=== PATIENT | female | born 1965 | race Caucasian/White ===

== ENCOUNTER 2016-07-06 20:07 | Emergency (ER) | payer MEDICARE, MEDICAID ==
[~2016-07-06] VITALS: Ht 149.9 cm; Wt 96.8 kg
[~2016-07-06 20:07] MED LIST: ARIP5TAB20 PO; GLIP10TA10 PO; KLO5T PO; LAMO200T PO; METF500T PO; OMEP20CA11 PO; PIOG15TA21 PO; VENL150T3 PO
[2016-07-06 20:13] VITALS: BP 141/82; PULSE 99; RESP 16; O2SAT 94
[2016-07-06 20:49] LABS: APPEARANCE,URINE HAZY (CLEAR,HAZY); COLOR,URINE YELLOW (YELLOW); OCCULT BLOOD,URINE NEGATIVE (NEGATIVE); PH,URINE 5.5 (5.0-8.0); UROBILINOGEN,URINE NORMAL (NORMAL); YEAST,URINE FEW (NONE SEEN)
[2016-07-06 21:28] LABS: BASOPHILS % (AUTO) 0.3 % (0-3); EOSINOPHILS % (AUTO) 0.9 % (0-5); MONOCYTES % (AUTO) 6.4 % (4-12); Mean Corpuscular Hemoglobin 25.3 pg (27.0-35.0); Mean Corpuscular Volume 79.4 fL (81-100); NEUTROPHILS % (AUTO) 61.6 % (40-74); Platelet Count 282 bil/L (150-400)
[2016-07-06] MEDS ORDERED: Insulin Human REGular-Omnicell 100 Unit/mL SUBQ ONE (22:35)
[2016-07-06] MEDS ORDERED: 0.9% Sodium Chloride 1,000 ML IV SCH (22:35)
[2016-07-06] MEDS ORDERED: 0.9% Sodium Chloride 1,000 ML IV ONE (22:35)
[2016-07-06 23:04] VITALS: BP 114/72; PULSE 88; RESP 18; O2SAT 96
--- NOTE | 2016-07-06 23:04 | ED.REPORT ---
HPI-Psychiatric Illness Date of Service Jul 06, 2016 ED Provider: Uriah Lopez MD 51-year-old female past medical history of depression, SI with attempt in college and recent psychiatric hospital admission for same in April 2016. Patient was discharged with medication management and outpatient follow-up resources in place. Presents to the ED custody of police department secondary to SI with plan. Patient states that she has not taken any of her prescription medications over the last few days, tonight she was [place] the [place] practicing she endorses a gambling addiction) when she felt guilty about being at the casino and began to have suicidal ideations. Her plan was to go home and overdose on her prescription Lamictal and metformin. She called 911 expressed these thoughts to responding officer who subsequently transported patient to ED for psychiatric eval. Patient has no medical complaints, denies hearing voices or visual disturbances. Denies ingesting alcohol drugs prescription or street. At time of interview she still endorses SI with plan and states she would like to be a voluntary admit to speak with secondary social studies teacher. Nursing Notes Stated Complaint: VOLUNTARY MENTAL HEALTH Chief Complaint: Psychiatric Complaint Nursing Notes Reviewed: Yes Allergies: Coded Allergies: codeine (Verified Adverse Reaction, Severe, Nausea,Vomiting, 07/06/16) Scheduled Aripiprazole (Aripiprazole) 5 Mg Tablet 5 MG PO DAILYWM Glipizide (Glipizide) 10 Mg Tablet 10 MG PO DAILYWM Lamotrigine (Lamictal) 200 Mg Tablet 200 MG PO DAILYWM Metformin (Glucophage) 500 Mg Tablet 1,000 MG PO BIDAC Omeprazole (Omeprazole) 20 Mg Capsule.dr 20 MG PO MORNING Pioglitazone (Pioglitazone) 15 Mg Tablet 15 MG PO DAILYWM Venlafaxine ER (Venlafaxine ER) 150 Mg Tab.er.24 300 MG PO DAILY Scheduled PRN Clonazepam (Clonazepam) 0.5 Mg Tablet 0.5 MG PO BID PRN PRN For Anxiety General Time Seen by MD: 20:37 Chief Complaint Suicidal ideation Hx Obtained From: Patient Arrived By: Police Onset Occurred: 1 - 4 hours ago Context of Onset: Other Risk-Psychiatric Illness Suicide Risk Stratification Suicide Risk Factors - Adult: : Previous attempt: Prior psych admissionNo: Access to firearms, Alcohol use RF Statements: Risk factors reviewed Past Medical History Past Medical History Notes: PCP: Dr. 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, In recovery Other Social History: Frequent ED visitor, Lives alone, Local resident Ambulatory Status Independent Review of Systems Basic Review of Systems Eyes: Vision NL ENT: Hearing NL, No pain, No nasal congestion : No dysuria Constitutional: Denies: Chills, Fever Respiratory: Denies: Non-productive cough, Shortness of breath, Wheezing Cardiovascular: Denies: Chest pain GI: Denies: Abdominal pain, Constipation, Diarrhea, Nausea, Vomiting Skin: Denies Bruising, Denies Swelling Neurologic: Denies: Abnormal movement, Change LOC, Dizziness, Focal weakness, Headache, Lightheaded, Seizure, Vision change, Weakness Psychiatric: Reports: Anxiety, Depression, Stress, Suicidal ideation, Denies: Confusion, Delusional, Hallucinations, auditory, Hallucinations, visual, Homicidal ideation Physical Exam Initial Vital Signs Vital Signs (First) Date Time Temp Pulse Resp B/P Pulse Ox O2 Delivery O2 Flow Rate FiO2 07/06/16 20:13 36.6 99 16 141/82 94 Room Air Initial VS: Reviewed Head / Eyes: Atraumatic, Normocephalic, PERRL Neck: Supple, Non-tender Respiratory: Breath sounds normal, No respiratory distress Cardiovascular: Regular rate & rhythm Abdomen / GI: Soft, Non-tender Extremities: Neuro intact Psychiatric: Affect NL, No hallucinations, Thought content NL Abnormal Mood/Affect: Positive: Depressed Abnormal Thinking / Perception: Positive: Suicidal, with plan Interpretation & Diagnostics Lab Results Interpretation Result Diagram: 07/06/16211907/06/162119 Test 07/06/16 20:34 07/06/16 21:20 Urine Color Yellow (YELLOW) Urine Appearance Hazy (CLEAR,HAZY) Urine pH 5.5 (5.0-8.0) Urine Specific [place] 1.015 (1.003-1.035) Urine Protein Negativemg/dL (NEG,TRACE) Urine Glucose (UA) 1000mg/dL (NEGATIVE) Urine Ketones Negativemg/dL (NEGATIVE) Urine Occult Blood Negative (NEGATIVE) Urine Nitrite Negative (NEGATIVE) Urine Bilirubin Negative (NEGATIVE) Urine Urobilinogen Normalmg/dL (NORMAL) Urine Leukocyte Esterase Negative (NEGATIVE) Urine RBC 0-2/hpf (0-2) Urine WBC 0-5/hpf (0-5) Urine Epithelial Cells Occasional/hpf (NONE-MOD) Urine Crystals None seen (NONE SEEN) Urine Bacteria None/hpf (NONE-FEW) Urine Hyaline Casts None/lpf (NONE) Urine Granular Casts None seen (NONE SEEN) Urine Waxy Casts None seen (NONE SEEN) Urine Red Blood Cell Casts None seen (NONE SEEN) Urine White Blood Cell Casts None seen (NONE SEEN) Urine Mucus None seen (None Seen) Urine Trichomonas None seen (NONE SEEN) Urine Yeast Few (NONE SEEN) Urinalysis Comment None Urine Culture Reflexed Not indicated Hold Urine Received (Received) White Blood Count 10.0th/mm3 (3.8-10.1) Red Blood Count 4.51mil/mm3 (3.90-5.20) Hemoglobin 11.4g/dL (12.0-15.6) Hematocrit 35.8% (35.0-46.0) Mean Corpuscular Volume 79.4fL (81-100) Mean Corpuscular Hemoglobin 25.3pg (27.0-35.0) Mean Corpuscular Hemoglobin Concent 31.8% (32.0-37.0) Red Cell Distribution Width 14.9% (12.3-15.4) Platelet Count 282bil/L (150-400) Neutrophils (%) (Auto) 61.6% (40-74) Lymphocytes (%) (Auto) 30.4% (14-46) Monocytes (%) (Auto) 6.4% (4-12) Eosinophils (%) (Auto) 0.9% (0-5) Basophils (%) (Auto) 0.3% (0-3) Sodium Level 130mEq/L (134-144) Potassium Level 4.4mEq/L (3.5-5.2) Chloride Level 91mEq/L (97-108) Carbon Dioxide Level 27mmol/L (18-29) Blood Urea Nitrogen 18mg/dL (6-24) Creatinine 0.85mg/dL (0.57-1.00) Estimat Glomerular Filtration Rate 100mL/min (>59) Glucose Level 466mg/dL (60-99) Calcium Level 9.3mg/dL (8.5-10.1) Total Bilirubin 0.2mg/dL (0.0-1.2) Aspartate Amino Transf (AST/SGOT) 11U/L (0-50) Alanine Aminotransferase (ALT/SGPT) 12U/L (0-32) Alkaline Phosphatase 126U/L (25-150) Total Protein 7.0g/dL (6.4-8.4) Albumin 3.4g/dL (3.4-5.0) Re-Eval/Medical Decision Med Decision/Clinical Course Patient is a voluntary admit, urinary to time of arrival in ED secondary social studies teacher referral not available. Patient will remain in ED until secondary social studies teacher meet with patient in the a.m. for additional evaluation and management. She has agreed to remain calm and cooperative throughout ED stay. Blood glucose in ED was ~450 time of arrival. 1 L normal saline given, 3 units regular insulin given. Repeat Glucose ~350. CBC, CMP unremarkable. Urinalysis unremarkable (did show positive for PCP, this was an error) On reevaluation of patient she did express that she feels safe to return home, no longer has suicidal ideations. She does not have access to firearms. She was encouraged to take her medications as prescribed by her provider with follow -up with her primary care provider as well as mental health professional regarding this ED visit as soon as possible. She was also given instructions to return to the ED if she has any return of SI Counseled Regarding: Diagnosis, Need for follow-up, When/why to return to ED Discharge & Departure Shift Change Sign-Out Response to Therapy: Improved Impression: Primary Impression: Suicidal ideation )( Condition at Discharge: No danger to self, No homicidal ideation Disposition: Home Discharge Condition All VS Reviewed: Yes Condition: Stable Additional Instructions: You are being discharged back home after expressing that you no longer are having thoughts of harming yourself. If you do have any return of these thoughts of harming yourself please do not act on them instead called 911 and return to the emergency department for additional evaluation. Please do follow-up with your primary care provider as soon as possible regarding today's ER visit as well as future medication management. Please continue to take your psychiatric medications as prescribed by your primary care provider. Referrals: Tommy Harris MD (PCP) Attending Statement Seen with Dr Pham on 07/06/16. Agree with above. copies to: Tommy Harris MD, GILES A DO Jul 06, 2016 23:04 Uriah Lopez MD Jul 07, 2016 00:34
[2016-07-07 00:27] VITALS: BP 127/74; PULSE 84; RESP 18; O2SAT 96
[2016-07-07 00:43] VITALS: BP 127/74; PULSE 84; RESP 18; O2SAT 96
[2016-08-24] MEDS ORDERED: CARB1TAB14 PO (15:09)
[2016-08-24] MEDS ORDERED: PIOG45TA PO (15:09)
[2016-08-24] MEDS ORDERED: VENL75CA PO (15:09)
[2016-08-24] MEDS ORDERED: DIAZ5TAB3 PO (15:09)
[2016-08-24] MEDS ORDERED: [UNRECOGNIZED DRUG - CODE] PO (15:09)
== END 2016-07-07 00:45 | disposition home or self-care (01) ==
LOC: SED 20:07
DX: R45.851 Suicidal ideations (principal); K21.9 Gastro-esophageal reflux disease without esophagitis; F31.9 Bipolar disorder, unspecified; J44.9 Chronic obstructive pulmonary disease, unspecified; E11.65 Type 2 diabetes mellitus with hyperglycemia; F17.200 Nicotine dependence, unspecified, uncomplicated; Z79.84 Long term (current) use of oral hypoglycemic drugs; Z88.5 Allergy status to narcotic agent
CPT/HCPCS: 36415; 80053; 81000; 82075; 82948; 85025; 96360; 96361; 96372; 99284; J1815; J7030

== ENCOUNTER 2016-09-21 19:56 | Emergency (ER) | payer MEDICARE, MEDICAID ==
[~2016-09-21] VITALS: Ht 149.9 cm; Wt 96.8 kg
[~2016-09-21 19:56] MED LIST changes: +CARB1TAB14 PO; +DIAZ5TAB3 PO; -GLIP10TA10 PO; -KLO5T PO; -METF500T PO; -PIOG15TA21 PO; +PIOG45TA PO; +VENL75CA PO; +[UNRECOGNIZED DRUG - CODE] PO
[2016-09-21 20:01] VITALS: BP 142/84; PULSE 91; RESP 16; O2SAT 97
[2016-09-21 20:27] LABS: BASOPHILS % (AUTO) 0.3 % (0-3); EOSINOPHILS % (AUTO) 1.4 % (0-5); MONOCYTES % (AUTO) 6.2 % (4-12); Mean Corpuscular Hemoglobin 25.4 pg (27.0-35.0); Mean Corpuscular Volume 80.1 fL (81-100); NEUTROPHILS % (AUTO) 65.9 % (40-74); Platelet Count 249 bil/L (150-400)
--- NOTE | 2016-09-21 20:52 | DRSVH ---
PROCEDURE: X-RAY CHEST, TWO VIEWS ([id number]) INDICATIONS: Cough TECHNIQUE: 2 views of the chest were acquired. COMPARISON: [facility], CR, XR CHEST 1VW (PORTABLE), 03/18/2016, 0:19. FINDINGS: Surgical changes and devices: Cervical spine fixation hardware Lungs and pleura: No pleural effusions or pneumothorax. Lungs are clear. Mediastinum: Mediastinal contours are normal. Heart size is normal. Bones and chest wall: No suspicious bony abnormalities. Soft tissues appear unremarkable. IMPRESSION: No acute disease Dictated by: Wilberto Escobar M.D. on 09/21/2016 at 20:51 Approved by: Wilberto Escobar M.D. on 09/21/2016 at 20:51
[2016-09-21 22:39] VITALS: BP 117/74; PULSE 89; RESP 22; O2SAT 95
--- NOTE | 2016-09-21 22:43 | ED.REPORT ---
HPI-URI / Cough / Cold Date of Service Sep 21, 2016 ED Provider: Darren Bro MD The patient is a 51 year old female w/ a hx of depression and multiple ED visits who presents to the ED with a non-productive cough for the past 2 weeks. She denies fever. She is a smoker and did not get a flu shot this year. Nursing Notes Stated Complaint: PNEUMONIA Chief Complaint: Respiratory Complaints Nursing Notes Reviewed: Yes Allergies: Coded Allergies: codeine (Verified Adverse Reaction, Severe, Nausea,Vomiting, 09/21/16) Scheduled Aripiprazole (Aripiprazole) 5 Mg Tablet 5 MG PO DAILYWM Carbidopa/Levodopa 25-100 mg (Carbidopa/Levodopa 25-100 mg) 1 Each Tablet 1 TABLET PO DAILY Lamotrigine (Lamictal) 200 Mg Tablet 200 MG PO DAILYWM Metformin ER (Fortamet) 500 Mg Tab.er.24 500 MG PO DAILY Omeprazole (Omeprazole) 20 Mg Capsule.dr 20 MG PO MORNING Pioglitazone (Actos) 45 Mg Tablet 45 MG PO DAILY Venlafaxine ER (Venlafaxine ER) 150 Mg Tab.er.24 300 MG PO DAILY Venlafaxine ER (Effexor XR) 75 Mg Capsule 75 MG PO DAILY Scheduled PRN Benzonatate (Benzonatate) 200 Mg Capsule 200 MG PO TID PRN PRN For Cough Diazepam (Diazepam) 5 Mg Tablet 5 MG PO TID PRN PRN For Anxiety General Time Seen by MD: 22:42 Chief Complaint Cough, non-productive Hx Obtained From: Patient Arrived By: Walk-in Onset Occurred: More than a week ago... (2 weeks) Symptom Duration: Since onset Severity: Current: No pain currently Past Medical History Past Medical History Notes: PCP: Dr. 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 Physical Exam Physical Exam Notes: Initial Vital Signs Vital Signs (First) Date Time Temp Pulse Resp B/P Pulse Ox O2 Delivery O2 Flow Rate FiO2 09/21/16 20:01 36.0 91 16 142/84 97 Room Air Initial VS: Reviewed, Vital signs normal Head / Eyes: Atraumatic, Normocephalic Neck: Supple, Non-tender Cardiovascular: Regular rate & rhythm, Heart sounds normal, Intact distal pulses Abdomen / GI: Soft, Non-tender, No guarding, No rebound, No distention Extremities: Vascular intact, No swelling, No tenderness Skin: Warm, Dry General/Constitutional: Awake, Alert, No acute distress, Well hydrated Appearance / Presentation: Positive: Obese, morbidly ENT: Atraumatic, Airway patent, Mucous membranes moist, Pharynx NL Respiratory / Chest: Atraumatic, Breath sounds NL, No respiratory distress good air movement Interpretation & Diagnostics Lab Results Interpretation Result Diagram: 09/21/16202009/21/162020 Test 09/21/16 20:21 White Blood Count 8.7th/mm3 (3.8-10.1) Red Blood Count 4.73mil/mm3 (3.90-5.20) Hemoglobin 12.0g/dL (12.0-15.6) Hematocrit 37.9% (35.0-46.0) Mean Corpuscular Volume 80.1fL (81-100) Mean Corpuscular Hemoglobin 25.4pg (27.0-35.0) Mean Corpuscular Hemoglobin Concent 31.7% (32.0-37.0) Red Cell Distribution Width 15.2% (12.3-15.4) Platelet Count 249bil/L (150-400) Neutrophils (%) (Auto) 65.9% (40-74) Lymphocytes (%) (Auto) 26.0% (14-46) Monocytes (%) (Auto) 6.2% (4-12) Eosinophils (%) (Auto) 1.4% (0-5) Basophils (%) (Auto) 0.3% (0-3) Sodium Level 130mEq/L (134-144) Potassium Level 5.0mEq/L (3.5-5.2) Chloride Level 92mEq/L (97-108) Carbon Dioxide Level 26mmol/L (18-29) Blood Urea Nitrogen 10mg/dL (6-24) Creatinine 0.82mg/dL (0.57-1.00) Estimat Glomerular Filtration Rate 104mL/min (>59) Glucose Level 543mg/dL (60-99) Calcium Level 8.4mg/dL (8.5-10.1) Total Bilirubin 0.2mg/dL (0.0-1.2) Aspartate Amino Transf (AST/SGOT) 10U/L (0-50) Alanine Aminotransferase (ALT/SGPT) 15U/L (0-32) Alkaline Phosphatase 135U/L (25-150) Total Protein 6.7g/dL (6.4-8.4) Albumin 3.6g/dL (3.4-5.0) Hold Virgen Top Tube Received (Received) X-Ray Chest Interpretation Chest Xray Interpretation: IMPRESSION: No acute disease Dictated by: Wilberto Escobar M.D. on 09/21/2016 at 20:51 Approved by: Wilberto Escobar M.D. on 09/21/2016 at 20:51 View: Portable Interpretation / Wet Read by: Interpret - Radiologist Re-Eval/Medical Decision Med Decision/Clinical Course 51-year-old smoker who presents with worsening respiratory distress and cough over the last week plus. She has a history of COPD. Chest x-ray is negative. She has no wheezing heard. She was given a prepack of azithromycin. She will follow-up with her primary doctor as needed. Re-Evaluation/Progress : Time of Eval: 22:52 Patient Status: Mild relief Re-Evaluation/Progress Note: Pt rechecked. Informed pt of results of chest x-ray. No pneumonia indicated. She will be discharged. F/U and RTER warnings given. Pt understands and agrees with plan. Counseled Regarding: Diagnosis, Lab results, Need for follow-up, When/why to return to ED Discharge & Departure Impression: Primary Impression: Acute bronchitis Bronchitis organism: unspecified organism Qualified Code: J20.9 - Acute bronchitis, unspecified Disposition: Home Discharge Condition All VS Reviewed: Yes Condition: Stable Patient Instructions: Acute Bronchitis (ED), How to Stop Smoking (GEN) Additional Instructions: Your chest x-ray does not show any signs of pneumonia. You have bronchitis, and because it is persistent and you smoke, we will treat with antibiotics. Azithromycin 250 mg, 2 pills now and then 1 pill daily until gone, #6 dispensed. Tessalon perles (benzonatate) 200 mg 3 times a day as needed for cough, #1 given in the emergency room and number and prescription written. Follow up with your primary care physician as needed. Stop smoking. Return to the Emergency Department for any new or worsening symptoms. I hope you feel better soon! Referrals: Tommy Harris MD (PCP) Scribe Attestation Portion of this note were transcribed by Monae Goldman. I, Dr. Bro, personally performed the history, physical exam, and medical decision-making: I reviewed and confirmed the accuracy for the information in the transcribed note. Signed by: kevin Philip, 09/21/16 2300 copies to: Tommy Harris MD, Howard L MD Sep 21, 2016 22:43 Monae Goldman Sep 21, 2016 22:56
[2016-09-21] MEDS ORDERED: _Azithromycin 250 mg Tablet PO SCH (23:00)
[2016-09-21] MEDS ORDERED: BENZ200C44 PO (23:12)
[2016-09-21 23:42] VITALS: BP 121/63; PULSE 97; RESP 20; O2SAT 96
== END 2016-09-21 23:43 | disposition home or self-care (01) ==
LOC: SED 19:56
DX: J20.9 Acute bronchitis, unspecified (principal); K21.9 Gastro-esophageal reflux disease without esophagitis; E11.9 Type 2 diabetes mellitus without complications; J44.9 Chronic obstructive pulmonary disease, unspecified; F17.200 Nicotine dependence, unspecified, uncomplicated; Z88.5 Allergy status to narcotic agent; Z79.84 Long term (current) use of oral hypoglycemic drugs

== ENCOUNTER 2016-09-25 11:19 | Emergency (ER) | payer MEDICARE, MEDICAID ==
[~2016-09-25] VITALS: Ht 149.9 cm; Wt 96.8 kg
[~2016-09-25 11:19] MED LIST changes: +BENZ200C44 PO
[2016-09-25 11:23] VITALS: BP 132/82; PULSE 95; RESP 15; O2SAT 95
--- NOTE | 2016-09-25 11:27 | ED.REPORT ---
HPI-Rash / Abscess Date of Service Sep 25, 2016 ED Provider: Dr. Adriel Mcbride MD A 51 year old female with a history of bipolar disorder and poorly controlled diabetes mellitus presents to the ED complaining of an abscess to the inner inguinal area that first appeared a few days ago. Patient reports several similar previous abscess. Her most recent abscess was one month ago. Associated symptoms include pain and swelling to the area. She denies fever or chills. Patient denies recent injury. Nursing Notes Stated Complaint: BOILS ON BUTTOCKS Chief Complaint: Skin Rash/Abscess Nursing Notes Reviewed: Yes Allergies: Coded Allergies: codeine (Verified Adverse Reaction, Severe, Nausea,Vomiting, 09/25/16) Scheduled Aripiprazole (Aripiprazole) 5 Mg Tablet 5 MG PO DAILYWM Carbidopa/Levodopa 25-100 mg (Carbidopa/Levodopa 25-100 mg) 1 Each Tablet 1 TABLET PO DAILY Lamotrigine (Lamictal) 200 Mg Tablet 200 MG PO DAILYWM Metformin ER (Fortamet) 500 Mg Tab.er.24 500 MG PO DAILY Omeprazole (Omeprazole) 20 Mg Capsule.dr 20 MG PO MORNING Pioglitazone (Actos) 45 Mg Tablet 45 MG PO DAILY Sulfamethoxazole/Trimeth 800-160 mg (Bactrim DS) 1 Each Tablet 1 TABLET PO BID Venlafaxine ER (Venlafaxine ER) 150 Mg Tab.er.24 300 MG PO DAILY Venlafaxine ER (Effexor XR) 75 Mg Capsule 75 MG PO DAILY Scheduled PRN Benzonatate (Benzonatate) 200 Mg Capsule 200 MG PO TID PRN PRN For Cough Diazepam (Diazepam) 5 Mg Tablet 5 MG PO TID PRN PRN For Anxiety General Time Seen by MD: 11:27 Chief Complaint Abscess Hx Obtained From: Patient Arrived By: Walk-in Onset Occurred: 3 days ago Symptom Duration: Since onset Location: : Buttock Quality: Painful Severity: Current: Mild Severity: Maximum: Moderate Associated with: Denies Fever Pertinent Negative: Pt denies other symptoms Related History: Denies: MRSA Recent Healthcare: No recent doctor visit, Recent hospitalization Past Medical History Past Medical History Notes: PCP: Dr. 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 Physical Exam Initial Vital Signs Vital Signs (First) Date Time Temp Pulse Resp B/P Pulse Ox O2 Delivery O2 Flow Rate FiO2 09/25/16 11:23 36.2 95 15 132/82 95 Room Air Initial VS: Reviewed Head / Eyes: Atraumatic, Normocephalic, PERRL Neck: Supple, Non-tender, Full range of motion Extremities: Vascular intact, Neuro intact, No swelling, No tenderness Neurologic: Alert, Oriented, Nonfocal Psychiatric: Mood/affect normal, Behavior normal, Normal thought content General/Constitutional: Awake, Alert, No acute distress Skin: Atraumatic, Color NL Abscess Notes: ABSCESS: Indurated, fluctuant 3 cm area to inner thigh and groin area adjacent to labia majora. Folliculitis in gluteal cleft Respiratory / Chest: Atraumatic, No respiratory distress Procedures Incision & Drainage Abscess Time: 14:13 Procedure Performed by: ED physician Consent / Setup / Site Prep: Consent from patient, Time-out performed, Hand hygiene observed, Stand sterile technique, Standard surgical scrub, Sterile drapes applied Location of Abscess: Inner thigh and groin area; adjacent to labia majora. Skin Preparation Agent: Normal saline Local Anesthesia: Lidocaine w epi 1% Incised Abscess with Scalpel: #11 Pus Drained: Purulent discharge, Bloody Post-Procedure / Complications: Packing placed, Drain placed, Culture obtained, Gram stain ordered, Dressing applied, No complications, Condition improved, Tolerated procedure well, Patient stable Re-Eval/Medical Decision Med Decision/Clinical Course 51-year-old with a history of recurrent groin abscesses presents with pain, redness, and swelling in the right groin. I&D procedure performed demonstrating purulent drainage. 1/4 inch packing placed without difficulty. Patient has follow-up with PCP in 3 days. Given the folliculitis present in the surrounding groin area and surrounding cellulitis/induration in the abscess region I elected to place her on Bactrim. Patient left immediately after the procedure before she could be given a prescription for antibiotics. We called the patient and she did not want to return to turkey picker her prescription. Re-Evaluation/Progress #1: Time of Eval: 14:13 Patient Status: Condition improved Re-Evaluation/Progress Note: Patient is rechecked. I & D is performed patient tolerates prodecure well. She is given aftercare instructions and agrees with the treatment plan to discharge. Re-Evaluation/Progress #2: Time of Eval: 15:14 Patient Status: Condition improved Re-Evaluation/Progress Note: Patient left without recieveing her prescription or discharge intructions. When contacted by the nurse, she claimed that she did not want them. Counseled Regarding: Diagnosis, Need for follow-up, When/why to return to ED Discharge & Departure Impression: Primary Impression: Abscess of groin, right Additional Impressions: Folliculitis Cellulitis Site of cellulitis: trunk Site of cellulitis of trunk: perineum Qualified Code: L03.315 - Cellulitis of perineum Disposition: Home Discharge Condition All VS Reviewed: Yes Condition: Improved Patient Instructions: Abscess (ED) Additional Instructions: Thank you for trusting us with your care this afternoon. Your emergency department evaluation today is reassuring and you tolerated the procedure very well. Please keep the packing in for the next 3 days and take bactrim twice every day for the next 10 days starting tomorrow. You received your first dose today in the emergency department. Keep your appointment with your primary care physician in the next 3- 4 days for a recheck. Please return to the emergency department immediately for any new or worsening conditions including any fevers, chills, worsening pain, redness or swelling. Referrals: Tommy Harris MD (PCP) Scribe Attestation Portions of this note were transcribed by Vannessa Marroquin. I, Dr. Mcbride personally performed the history, physical exam and medical decision-making; I reviewed and confirmed the accuracy of the information in the transcribed note. Signed by: David Schreiber, 09/25/16 1535. copies to: Tommy Harris MD, Gary R DO Sep 25, 2016 11:27 VANNESSA MARROQUIN Sep 25, 2016 11:35
[2016-09-25] MEDS ORDERED: Lidocaine 1%-Epi 1:100,000 20 mL Inj ONE (12:25)
[2016-09-25] MEDS ORDERED: SULF1TAB7 PO (14:25)
[2016-09-25] MEDS ORDERED: Trimethoprim-Sulfa 160 mg-800 mg Tablet PO ONE (14:30)
== END 2016-09-25 14:43 | disposition home or self-care (01) ==
LOC: SED 11:19
DX: L02.214 Cutaneous abscess of groin (principal); L03.315 Cellulitis of perineum; L73.9 Follicular disorder, unspecified; J44.9 Chronic obstructive pulmonary disease, unspecified; F31.9 Bipolar disorder, unspecified; K21.9 Gastro-esophageal reflux disease without esophagitis; E11.9 Type 2 diabetes mellitus without complications; F17.200 Nicotine dependence, unspecified, uncomplicated; Z79.84 Long term (current) use of oral hypoglycemic drugs; Z88.5 Allergy status to narcotic agent

== ENCOUNTER 2016-10-07 21:11 | Emergency (ER) | payer MEDICARE, MEDICAID ==
[~2016-10-07] VITALS: Ht 149.9 cm; Wt 92.0 kg
[~2016-10-07 21:11] MED LIST changes: +SULF1TAB7 PO
[2016-10-07 21:16] VITALS: BP 137/81; PULSE 94; RESP 20; O2SAT 96
--- NOTE | 2016-10-07 22:42 | ED.REPORT ---
HPI-Dyspnea / Wheezing Date of Service Oct 07, 2016 ED Provider: Dr. Bro. A 51 year old female with a history of diabetes and asthma presents to the ED complaining of abscess on butt cheek onset a couple of weeks ago. She had it in drained in the ED recently. Associated symptoms include non-productive cough described as hacking onset 1 month ago and wheezing. She denies any sputum from coughs and denies any fever. She reports allergy to codeine. Nursing Notes Stated Complaint: COUGH,WEEZING Chief Complaint: General Complaint Nursing Notes Reviewed: Yes Allergies: Coded Allergies: codeine (Verified Adverse Reaction, Severe, Nausea,Vomiting, 09/25/16) Scheduled Aripiprazole (Aripiprazole) 5 Mg Tablet 5 MG PO DAILYWM Carbidopa/Levodopa 25-100 mg (Carbidopa/Levodopa 25-100 mg) 1 Each Tablet 1 TABLET PO DAILY Lamotrigine (Lamictal) 200 Mg Tablet 200 MG PO DAILYWM Metformin ER (Fortamet) 500 Mg Tab.er.24 500 MG PO DAILY Omeprazole (Omeprazole) 20 Mg Capsule.dr 20 MG PO MORNING Pioglitazone (Actos) 45 Mg Tablet 45 MG PO DAILY Sulfamethoxazole/Trimeth 800-160 mg (Bactrim DS) 1 Each Tablet 1 TABLET PO BID Venlafaxine ER (Venlafaxine ER) 150 Mg Tab.er.24 300 MG PO DAILY Venlafaxine ER (Effexor XR) 75 Mg Capsule 75 MG PO DAILY Scheduled PRN Benzonatate (Benzonatate) 200 Mg Capsule 200 MG PO TID PRN PRN For Cough Diazepam (Diazepam) 5 Mg Tablet 5 MG PO TID PRN PRN For Anxiety General Time Seen by MD: 22:42 Chief Complaint Other (butt abscess) Hx Obtained From: Patient Arrived By: Walk-in Sudden in Onset?: No Onset Occurred: More than a week ago... (couple of weeks ago) Symptom Duration: Since onset Severity: Current: Moderate Severity: Maximum: Moderate Recent Healthcare: Recent doctor visit (ED visit 09/25/2016) Similar Sx Previous: No Past Medical History Past Medical History Notes: PCP: Dr. Harris Past Medical History Bipolar, approximately 6-7 admissions PTSD anxiety h/o Diverticulitis h/o PCOS GERD poorly controlled diabetes mellitus restless leg syndrome. Allergy to Codeine. Reports: COPD, Denies: Asthma Reports: Depression Past Surgical History Cervical spine surgery Reports: Cholecystectomy Family History Noncontributory Smoking History Current Every Day Smoker (1 pack per day) Social History Denies THC use. 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 Constitutional: Denies: Fever Respiratory: Reports: Non-productive cough, Wheezing, Denies: Prod cough, clear (denies sputum) Complete sys rev & neg: except as marked. Physical Exam Initial Vital Signs Vital Signs (First) Date Time Temp Pulse Resp B/P Pulse Ox O2 Delivery O2 Flow Rate FiO2 10/07/16 21:16 35.9 94 20 137/81 96 Room Air Initial VS: Reviewed, Vital signs normal General/Constitutional: Awake, Alert Neck: No swelling Wheezing / Retractions: Positive: Wheezing expiratory Patient has frequent cough. No focal change in breath sounds. Cardiovascular: Heart rate NL, Regular rhythm, Heart sounds NL, No gallop, No murmurs, No rubs ENT: Atraumatic, Airway patent Abdomen: No guarding, No rebound Small indurated erythematous area around right buttock that is not pointing. Neurologic: Oriented X3, Speech NL Head / Eyes: Atraumatic, Normocephalic, PERRL, EOMI Upper Extremity / MS: No swelling, No edema Interpretation & Diagnostics X-Ray Chest Interpretation Chest Xray Interpretation: IMPRESSION: Normal. 10/07/2016. 2343 Interpretation / Wet Read by: Wet read ED physician Re-Eval/Medical Decision Med Decision/Clinical Course 51-year-old female who presents with concern for an abscess on her buttocks. There is a small indurated area without fluctuation and there is some surrounding erythema. She also has some bronchitis and is a smoker. Her chest x-ray is negative. She will be started on doxycycline and warm compresses for the abscess. Source of Hx: Old records Re-Evaluation/Progress : Time of Eval: 23:56 Re-Evaluation/Progress Note: Rechecked patient, explained normal Chest XRay results and plan for dischaerge. Patient understands and agrees with the plan. All questions addressed. Counseled Regarding: Diagnosis, Lab results, Need for follow-up, When/why to return to ED Discharge & Departure Impression: Primary Impression: Abscess of buttock, right Additional Impressions: Bronchitis Cigarette smoker Disposition: Home Discharge Condition All VS Reviewed: Yes Condition: Improved Patient Instructions: Abscess (ED), Acute Bronchitis (ED) Additional Instructions: Doxycycline 100 mg by mouth twice a day, prepack dispensed. Warm compresses to the infected area. Recheck if it becomes larger, drains, or becomes very soft in the middle of the hardened area. The doxycycline may also be helpful with your bronchitis. No evidence of pneumonia found. Referrals: Tommy Harris MD (PCP) Scribe Attestation Portions of this note were transcribed by Carlos Flanagan. I, Dr. Bro personally performed the history, physical exam and medical decision-making; I reviewed and confirmed the accuracy of the information in the transcribed note. Signed by: David Jc, 10/08/2016, 0234. copies to: Tommy Harris MD, Howard L MD Oct 07, 2016 22:42 Carlos Flanagan Oct 07, 2016 22:47
[2016-10-07] MEDS ORDERED: Albuterol-Ipratropium 3 mL Inhalation Solution NEB ONE (22:50)
[2016-10-07 23:04] VITALS: PULSE 90; RESP 20; O2SAT 96
[2016-10-08] MEDS ORDERED: _Doxycycline 100 mg Tablet PO SCH (08:30)
--- NOTE | 2016-10-08 12:08 | DRSVH ---
PROCEDURE: X-RAY CHEST, TWO VIEWS ([id number]) INDICATIONS: cough, wheezing TECHNIQUE: 2 views of the chest were acquired. COMPARISON: [facility], CR, XR CHEST 2VW, 09/21/2016, 20:12. FINDINGS: Surgical changes and devices: Vascular clips are present in the region of the gallbladder fossa. Plat e and screws is present from previous lower cervical spine anterior surgery. Lungs and pleura: No pleural effusions or pneumothorax. Lungs are clear. Mediastinum: Mediastinal contours are normal. Heart size is normal. Bones and chest wall: No suspicious bony abnormalities. Soft tissues appear unremarkable. IMPRESSION: Acute disease is not seen in the two-view chest. Cause of cough and wheezing is not ident ified. Dictated by: Jean Jolley M.D. on 10/08/2016 at 12:01 Approved by: Jean Jolley M.D. on 10/08/2016 at 12:06
== END 2016-10-08 00:07 | disposition home or self-care (01) ==
LOC: SED 21:11
DX: L02.31 Cutaneous abscess of buttock (principal); J40 Bronchitis, not specified as acute or chronic; F17.200 Nicotine dependence, unspecified, uncomplicated; E11.9 Type 2 diabetes mellitus without complications; J45.909 Unspecified asthma, uncomplicated; J44.9 Chronic obstructive pulmonary disease, unspecified; K21.9 Gastro-esophageal reflux disease without esophagitis; Z79.84 Long term (current) use of oral hypoglycemic drugs; Z88.5 Allergy status to narcotic agent
CPT/HCPCS: 71020; 94664; 99284; J7620

== ENCOUNTER 2017-01-01 08:38 | Emergency (ER) | payer MEDICARE, MEDICAID ==
[2017-01-01 08:52] VITALS: BP 162/88; RESP 20; O2SAT 98
--- NOTE | 2017-01-01 09:10 | ED.REPORT ---
HPI-URI / Cough / Cold Date of Service Jan 01, 2017 ED Provider: Tommy Sharma MD Pt is a 51 y/o female w/ a hx of DM, COPD, presenting to the ED c/o URI-like symptoms onset 10 days ago. She c/o sore throat, productive green cough, maxillary sinus pain, rhinorrhea. Pt denies fever, chills, SOB, CP. She has a history of sinusitis and has not been on antibiotics recently. She is also reporting a lump over her right abdomen which has been present for years and was told by Urgent Care recently that it was a hernia. She does has a history of cholecystectomy. Nursing Notes Stated Complaint: COUGH/SORE THROAT Chief Complaint: ENT & Mouth Nursing Notes Reviewed: Yes Allergies: Coded Allergies: codeine (Verified Adverse Reaction, Severe, Nausea,Vomiting, 09/25/16) Scheduled Amoxicillin/Clav K 875-125 mg (Augmentin 875-125 mg) 1 Each Tablet 1 TABLET PO BID Aripiprazole (Aripiprazole) 5 Mg Tablet 5 MG PO DAILYWM Carbidopa/Levodopa 25-100 mg (Carbidopa/Levodopa 25-100 mg) 1 Each Tablet 1 TABLET PO DAILY Lamotrigine (Lamictal) 200 Mg Tablet 200 MG PO DAILYWM Metformin ER (Fortamet) 500 Mg Tab.er.24 500 MG PO DAILY Omeprazole (Omeprazole) 20 Mg Capsule.dr 20 MG PO MORNING Pioglitazone (Actos) 45 Mg Tablet 45 MG PO DAILY Sulfamethoxazole/Trimeth 800-160 mg (Bactrim DS) 1 Each Tablet 1 TABLET PO BID Venlafaxine ER (Venlafaxine ER) 150 Mg Tab.er.24 300 MG PO DAILY Venlafaxine ER (Effexor XR) 75 Mg Capsule 75 MG PO DAILY Scheduled PRN Benzonatate (Benzonatate) 200 Mg Capsule 200 MG PO TID PRN PRN For Cough Diazepam (Diazepam) 5 Mg Tablet 5 MG PO TID PRN PRN For Anxiety Promethazine DM Syrup (Promethazine DM Syrup) 118 Ml Syrup 5 ML PO HS PRN PRN For Cough General Time Seen by MD: 09:05 Chief Complaint Sore throat Hx Obtained From: Patient Arrived By: Walk-in Onset Occurred: More than a week ago... Symptom Duration: Since onset Location: : Sinus maxillary left Quality: Painful Severity: Current: Mild Severity: Maximum: Moderate Similar Sx Previous: Yes Past Medical History Past Medical History Notes: PCP: Dr. Harris Past Medical History Bipolar, approximately 6-7 admissions PTSD anxiety h/o Diverticulitis h/o PCOS GERD poorly controlled diabetes mellitus restless leg syndrome. Allergy to Codeine. Reports: COPD Reports: Depression Past Surgical History Cervical spine surgery Reports: Cholecystectomy Family History Noncontributory Smoking History Current Every Day Smoker Social History Denies THC use. 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 Cardiovascular: Denies: Chest pain Physical Exam Initial Vital Signs Vital Signs (First) Date Time Temp Pulse Resp B/P Pulse Ox O2 Delivery O2 Flow Rate FiO2 01/01/17 08:52 36.6 69 20 162/88 98 Room Air Initial VS: Reviewed, Vital signs normal Neck: Supple, Full range of motion Cardiovascular: Regular rate & rhythm, Heart sounds normal, Intact distal pulses Abdomen / GI: Soft, Non-tender Extremities: Vascular intact, Neuro intact, No swelling Skin: Warm, Dry, No cyanosis Neurologic: Alert, Oriented, Nonfocal Psychiatric: Mood/affect normal, Behavior normal, Normal thought content General/Constitutional: Awake, Alert, No acute distress, Well appearing, Cooperative, Not toxic appearing ENT: Atraumatic, Airway patent, Mucous membranes moist Respiratory / Chest: Breath sounds NL, Breath sounds = bilat, No respiratory distress, No rales, No rhonchi, No wheezing, No retractions, No stridor Head / Eyes: Atraumatic, Normocephalic, PERRL, EOMI Tender over frontal and left maxillary sinuses Re-Eval/Medical Decision Med Decision/Clinical Course Med Decision/Clinical Course: 51-year-old female complaining of sinus pressure 10 days. She is tender over her frontal and maxillary sinuses. Her vital signs are stable. Her lungs are clear. She is afebrile. She also has a ventral hernia which is reducible and nontender. He reports this has been the same for 3 years. Treat for acute bacterial sinusitis with antibiotics. Recommend follow-up with primary doctor for her ventral hernia with return precautions if any new or worsening pain, nonreducible, blood in stools, fevers, any other new or worsening symptoms. Re-Evaluation/Progress : Time of Eval: 09:47 Re-Evaluation/Progress Note: Pt rechecked. Informed pt of plan for treatment. Pt understands and agrees with plan for treatment. F/U instructions and RTER warnings given. All questions addressed. Counseled Regarding: Diagnosis, Need for follow-up, When/why to return to ED Discharge & Departure Impression: Primary Impression: Sinusitis Sinusitis location: maxillary Chronicity: acute Recurrence: not specified as recurrent Qualified Code: J01.00 - Acute maxillary sinusitis, unspecified Additional Impression: Ventral hernia Obstruction and gangrene presence: without obstruction or gangrene Qualified Code: K43.9 - Ventral hernia without obstruction or gangrene Disposition: Home Discharge Condition All VS Reviewed: Yes Condition: Stable Patient Instructions: Sinusitis (ED), Ventral Hernia (ED) Additional Instructions: You have sinusitis and a ventral hernia. Take the antibiotics as prescribed for the sinusitis. Take Promethazine DM as needed for cough. This medication is sedating. Regarding the sinusitis, return to the emergency department for trouble breathing, severe headache, high fever, or for other concerning symptoms. Regarding the hernia, return to the emergency department for severe pain over the hernia site, blood in the stools, nausea and vomiting, or for other concerning symptoms. Follow-up with your doctor regarding these problems by the end of the week. You may get a surgery referral for the hernia. Referrals: Tommy Harris MD (PCP) David Attestation Portions of this note were transcribed by Aric Dixon. I, Dr. Sharma, personally performed the history, physical exam and medical decision-making; I reviewed and confirmed the accuracy of the information in the transcribed note. Signed by David Hammond, 01/01/17 - [id number] copies to: Tommy Harris MD, Ben M MD Jan 01, 2017 09:10 ARIC DIXON Jan 01, 2017 09:42
[2017-01-01] MEDS ORDERED: D-ME118S8 PO (09:40)
[2017-01-01] MEDS ORDERED: AMOX-366 PO (09:40)
[2017-01-01 09:57] VITALS: BP 127/86; PULSE 80; RESP 16; O2SAT 95
== END 2017-01-01 09:57 | disposition home or self-care (01) ==
LOC: SED 08:38
DX: J01.00 Acute maxillary sinusitis, unspecified (principal); K43.9 Ventral hernia without obstruction or gangrene; F43.10 Post-traumatic stress disorder, unspecified; K21.9 Gastro-esophageal reflux disease without esophagitis; E11.9 Type 2 diabetes mellitus without complications; F17.200 Nicotine dependence, unspecified, uncomplicated; Z88.5 Allergy status to narcotic agent; Z79.899 Other long term (current) drug therapy

== ENCOUNTER 2017-01-30 08:49 | Inpatient (IN) | payer MEDICARE, MEDICAID ==
[~2017-01-30] VITALS: Ht 149.9 cm; Wt 86.4 kg
[~2017-01-30 08:49] MED LIST changes: +AMOX-366 PO; +D-ME118S8 PO
[2017-01-30 08:56] VITALS: BP 163/90; PULSE 84; RESP 18; O2SAT 99
[2017-01-30] MEDS ORDERED: GLIP10TA10 PO (09:11)
[2017-01-30] MEDS ORDERED: BUSP10TA2 PO (09:11)
[2017-01-30] MEDS ORDERED: PIOG15TA21 PO (09:11)
--- NOTE | 2017-01-30 10:12 | ED.REPORT ---
HPI-General Illness Date of Service Jan 30, 2017 ED Provider: Dr. Duarte Pt is a 51 year old female with a hx of DM, bipolar and depression presenting to the ED via public transit complaining of suicidal ideation. She reports that she first went to [place] today hoping to get medication to help her sleep, but was sent here on a bus. Denies any suicidal plan currently, homicidal ideation, visual or auditory hallucinations. She states that she came in today because she couldn't sleep. Denies any recent stressors, though states that her lack of sleep is making her depression worse and may be contributing to her suicidal thoughts. She states that she has had these in the past, though worse in the past few days. No other complaints at this time. Nursing Notes Stated Complaint: SUICIDAL Chief Complaint: Psychiatric Complaint Nursing Notes Reviewed: Yes Allergies: Coded Allergies: codeine (Verified Adverse Reaction, Severe, Nausea,Vomiting, 09/25/16) Scheduled Aripiprazole (Aripiprazole) 5 Mg Tablet 5 MG PO DAILYWM Buspirone (Buspirone) 10 Mg Tablet 10 MG PO BID Glipizide (Glipizide) 10 Mg Tablet 10 MG PO DAILY Lamotrigine (Lamictal) 200 Mg Tablet 200 MG PO DAILYWM Omeprazole (Omeprazole) 20 Mg Capsule.dr 20 MG PO MORNING Pioglitazone (Pioglitazone) 15 Mg Tablet 15 MG PO DAILY Venlafaxine ER (Venlafaxine ER) 150 Mg Tab.er.24 300 MG PO DAILY General Time Seen by MD: 10:11 Chief Complaint Other (Suicidal) Hx Obtained From: Patient Arrived By: Walk-in Sudden in Onset?: No Onset Occurred: Onset unknown Symptom Duration: Since onset Recent Healthcare: No recent hospitalization, Recent doctor visit Similar Sx Previous: Yes Past Medical History Past Medical History Notes: PCP: Dr. Harris Past Medical History Bipolar, approximately 6-7 admissions PTSD anxiety h/o Diverticulitis h/o PCOS GERD poorly controlled diabetes mellitus restless leg syndrome. Allergy to Codeine. Reports: COPD, Diabetes mellitus Reports: Depression Past Surgical History Cervical spine surgery Reports: Cholecystectomy Family History Noncontributory Smoking History Current Every Day Smoker Social History Denies THC use. 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, In recovery Other Social History: Frequent ED visitor, Lives alone, Local resident Ambulatory Status Independent Review of Systems Full Review of Systems Constitutional: Denies: Fever Ears / Nose / Throat: Denies: Nasal congestion Respiratory: Denies: Shortness of breath Cardiovascular: Denies: Chest pain GI: Denies: Abdominal pain Female: Denies: Flank pain, Hematuria Musculoskeletal: Denies: Back pain Endocrine: Denies: Polydipsia Skin: Denies Rash Allergy / Immune: Denies: Itching Neurologic: Denies: Headache Psychiatric: Reports: Depression, Insomnia, Suicidal ideation, Denies: Hallucinations, auditory, Hallucinations, visual, Homicidal ideation Complete sys rev & neg: except as marked. Physical Exam Nursing note and vitals reviewed. Constitutional: Well-developed, well-nourished. Not diaphoretic. Head: Normocephalic and atraumatic. Mouth/Throat: Oropharynx is clear and moist. No oropharyngeal exudate. Eyes: EOM are normal. Pupils are equal, round, and reactive to light. Neck: Supple, no tracheal deviation. Cardiovascular: Normal rate, regular rhythm. Equal and intact distal pulses throughout. Pulmonary/Chest: Effort normal and breath sounds normal. No respiratory distress. Abdominal: Soft. No distension. There is no tenderness, rebound, or guarding. Bowel sounds present. Small periumbilical hernia stable to palpation. Musculoskeletal: Range of motion grossly intact, moving all extremities. No edema or tenderness appreciated. Neurological: AOx3. Grossly nonfocal exam. Strength and sensation intact and equal to bilateral upper and lower extremities. Skin: Warm and dry, no rashes or pallor appreciated. Psychiatric: Appropriate mood and affect. Behavior appears normal. Reports suicidal ideation. Denies any visual or auditory hallucinations or suicidal plan. Vital Signs Vital Signs Date Time Temp Pulse Resp B/P Pulse Ox O2 Delivery O2 Flow Rate FiO2 01/30/17 16:47 92 20 142/89 100 Room Air 01/30/17 13:00 36.4 90 16 109/73 97 Room Air 01/30/17 08:56 36.0 84 18 163/90 99 Initial VS: Reviewed Interpretation & Diagnostics Lab Results Interpretation Result Diagram: 01/30/17 1230 01/30/17 1230 Test 01/30/17 09:15 01/30/17 12:30 Hold Urine Received (Received) White Blood Count 3.7th/mm3 (3.8-10.1) Red Blood Count 4.48mil/mm3 (3.90-5.20) Hemoglobin 11.6g/dL (12.0-15.6) Hematocrit 36.5% (35.0-46.0) Mean Corpuscular Volume 81.5fL (81-100) Mean Corpuscular Hemoglobin 25.9pg (27.0-35.0) Mean Corpuscular Hemoglobin Concent 31.8% (32.0-37.0) Red Cell Distribution Width 14.5% (12.3-15.4) Platelet Count 219bil/L (150-400) Neutrophils (%) (Auto) 58.3% (40-74) Lymphocytes (%) (Auto) 26.0% (14-46) Monocytes (%) (Auto) 14.1% (4-12) Eosinophils (%) (Auto) 0.8% (0-5) Basophils (%) (Auto) 0.5% (0-3) Sodium Level 139mEq/L (134-144) Potassium Level 4.3mEq/L (3.5-5.2) Chloride Level 101mEq/L (97-108) Carbon Dioxide Level 25mmol/L (18-29) Blood Urea Nitrogen 12mg/dL (6-24) Creatinine 0.79mg/dL (0.57-1.00) Estimat Glomerular Filtration Rate 109mL/min (>59) Glucose Level 168mg/dL (60-99) Calcium Level 8.9mg/dL (8.5-10.1) Total Bilirubin 0.2mg/dL (0.0-1.2) Aspartate Amino Transf (AST/SGOT) 15U/L (0-50) Alanine Aminotransferase (ALT/SGPT) 15U/L (0-32) Alkaline Phosphatase 88U/L (25-150) Total Protein 6.7g/dL (6.4-8.4) Albumin 3.8g/dL (3.4-5.0) Thyroid Stimulating Hormone (TSH) 0.788uIU/mL (0.450-4.500) Re-Eval/Medical Decision Med Decision/Clinical Course In summary, 51F presenting to the ED for evaluation of worsening depression over the past several days, now with suicidal ideations without a plan. DDx includes metabolic abnormality, hypo/hyperthyroidism, substance abuse, systemic infectious process, acute exacerbation of underlying psychiatric illness. Afebrile, nontoxic appearing. Benign exam. Labs reviewed; no obvious metabolic abnormalities that would fully account for this presentation. TSH wnl. UDS pending. Psychiatry and social work consulted; please see their notes for full details. After d/w patient, social work, and psychiatry service, it was felt that the patient would be best served by admission to the psychiatry inpatient service for further evaluation, management, and to ensure safety. Time of Eval: 12:00 Patient Status: Condition unchanged Re-Evaluation/Progress Note: Admit to [facility] [place]. Counseled Regarding: Diagnosis, Lab results, Need for admission Discharge & Departure Primary Impression: Suicidal ideation Disposition: ADMITTED TO HOSPITAL Discharge Condition All VS Reviewed: Yes Condition: Stable Referrals: Tommy Harris MD (PCP) Hanselibmarly Attestation Portions of this note were transcribed by Marysol Hill. I, Dr. Duarte personally performed the history, physical exam and medical decision-making; I reviewed and confirmed the accuracy of the information in the transcribed note. Signed by: David Whaley, 01/30/2017. copies to: Tommy Harris MD, William B MD Jan 30, 2017 10:12 MARYSOL HILL Jan 30, 2017 11:02
[2017-01-30 12:50] LABS: BASOPHILS % (AUTO) 0.5 % (0-3); EOSINOPHILS % (AUTO) 0.8 % (0-5); MONOCYTES % (AUTO) 14.1 % (4-12); Mean Corpuscular Hemoglobin 25.9 pg (27.0-35.0); Mean Corpuscular Volume 81.5 fL (81-100); NEUTROPHILS % (AUTO) 58.3 % (40-74); Platelet Count 219 bil/L (150-400)
[2017-01-30 13:00] VITALS: BP 109/73; PULSE 90; RESP 16; O2SAT 97
[2017-01-30 16:47] VITALS: BP 142/89; PULSE 92; RESP 20; O2SAT 100
[2017-01-30] MEDS ORDERED: LORazepam 0.5 mg Tablet PO ONE (20:35)
[2017-01-30 23:37] VITALS: BP 131/72; PULSE 91; RESP 16; O2SAT 97
[2017-01-31 00:02] VITALS: BP 131/72; PULSE 91; RESP 16; O2SAT 97
[2017-01-31 00:13] LABS: APPEARANCE,URINE SLIGHTLY CLOUDY (CLEAR,HAZY); COLOR,URINE STRAW (YELLOW); PH,URINE 6.5 (5.0-8.0)
[2017-01-31 00:14] LABS: OCCULT BLOOD,URINE NEGATIVE (NEGATIVE); UROBILINOGEN,URINE NORMAL (NORMAL)
[2017-01-31] MEDS ORDERED: Alum-Mag Hydrox-Simeth 30 mL Suspension PO PRN (00:20)
[2017-01-31] MEDS ORDERED: Magnesium Hydroxide 10 mL Oral Concentration PO PRN (00:20)
[2017-01-31 09:00] VITALS: BP 124/82; PULSE 85; RESP 16
[2017-01-31] MEDS: glipiZIDE 2.5 mg ER24 Tablet PO SCH (13:15)
--- NOTE | 2017-01-31 13:56 | HP ---
[address] [address] HISTORY AND PHYSICAL PATIENT: JOMAR BUSH : 1965 MR#: [id number] ADMIT: 01/31/2017 JOB ID: [id number] DATE OF SERVICE: 01/31/2017 IDENTIFICATION: The patient is a 51-year-old, white female, who has been suffering with a combination of bipolar mood disorder and PTSD and polysubstance abuse. She is in early remission. Currently lives alone. She lives in [place]. REASON FOR ADMISSION: Client self presented to the emergency department with suicidal ideation and was unable to develop a safety plan. HISTORY OF PRESENT ILLNESS: Client presents today for evaluation and treatment of suicidal ideation. Complaining of multiple symptoms of depression, poor sleep, interest, guilt, poor energy, poor concentration, and for the past four days increasing suicidal ideation. Client's main issue is unclear. She could not identify a clear stressor other than, "My meds are not working." The suicidal ideation is acute and has been developing over the last four days. However, the depression and the mood difficulty with mood swings has been present for several decades. She is on multiple different medications; Abilify, BuSpar, Lamictal and Effexor, trying to stabilize her mood. Again, for unclear reasons, the coping mechanisms and the medications she is using are not helping. She states she did state that for some reason, she has not been sleeping for the past week and this seems to be a significant contributor. She is currently presenting with signs of marked impairment in impulse control, coping. Her reality testing was intact. She described many symptoms of depression but denied psychiatric review of systems for priyanka or psychosis. She denied physical review of systems for constitution, cardiac, respiratory, GI or genitourinary complaints except for feeling exhausted. PAST HISTORY: MEDICATIONS: 1. Abilify 5 daily. 2. BuSpar 10 b.i.d. 3. Lamictal 20 daily. 4. Effexor ER 150 two tabs daily. 5. Glipizide 10 daily. Client is seen by Gurmeet Cain. Client also on medication, a diabetic med, pioglitazone 15 daily. ALLERGIES: CODEINE. ILLNESSES: Kmu-xuxefif-eeqprgiso diabetes, gastroesophageal reflux disease. FAMILY MEDICAL HISTORY: Noncontributory. PAST PSYCHIATRIC HISTORY: Bipolar mood disorder, mostly depression, approximately 7-10 different inpatient hospitalizations. PTSD. History of polysubstance abuse, currently in recovery. PSYCHOSOCIAL HISTORY: Client refused to respond to questions about her past psychosocial history. She stated that she was too tired and would talk in the morning. She did state that she was continuing to have suicidal ideation. [place] safe here on the unit but that the intensity of suicidal ideation Continues. She denied history of drug and alcohol use. PHYSICAL EXAM: Done in the ED, reviewed and essentially normal. Vital signs 131/72, pulse 91, respirations 16, afebrile. LABS: CBC, liver, electrolytes, thyroid normal. UDS was negative. MENTAL STATUS: Client disheveled with poor eye contact. She was so tired she could not sit up in her bed. Her behavior was lethargic and withdrawn. Attitude: Aloof and detached. Speech: Monotone, one-word responses. Mood: Dysphoric. Affect: Flat, restricted. Thought process: Client had a difficult time relating a coherent history. Her thought process was markedly concrete with black and white thinking and "tunnel vision," seeing suicide as her only option. Thought content significant for themes of hopelessness and helplessness, although denied symptoms of delusion or auditory hallucinations. Client was alert and oriented to person, place, and date. Marked impairment in insight and judgment. Marked impairment in impulse control. She is highly controlled but has a difficult time handling impulses of anger, sadness and fear. Reality testing is intact. Competence to handle current stressors: Is currently being overwhelmed. IMPRESSION: The patient is a 51-year-old, white female, who has been struggling with symptoms of both polysubstance abuse and bipolar mood disorder, primarily depression for the past several decades. In the past, she had been relatively well controlled on a combination of Abilify, Lamictal and Effexor, but for unclear reasons has had unrelenting depression in the past month, culminating in four days of suicidal ideation. In the ED, she is unable to safety plan, to come up with outpatient treatment, and she is admitted on a voluntary basis. DIAGNOSIS: [place] I. 1. Bipolar mood disorder, depression with suicidal ideation. 2. Posttraumatic stress disorder. [place] II. Defer. [place] III. Bqq-quwgcay-pzwplprli diabetes, gastroesophageal reflux disease. [place] IV. Unknown. [place] V. Current Global Assessment of Functioning equal to 35. PLAN: Recommend client be admitted to our unit, be provided with a high degree of safety through the structure and active adult engagement she received from our mental health techs, our psychiatric nurse staff, mental health professionals and psychiatric staff. We will focus on improving coping skills, on identifying potential stressors that contributed to current suicidal ideation. At the moment, I am going to continue her current medications until she is more able to engage me in a therapeutic manner so we can discuss the relative risks, benefits and side effects of this medication combination and potential alternatives. Client is admitted on a voluntary basis and I would anticipate a 5-7 day stay.
[2017-01-31] MEDS: Venlafaxine XR 75 mg ER24 Capsule PO SCH (14:00)
[2017-01-31] MEDS: BusPIRone 15 mg Dividose Tablet PO SCH (21:02)
[2017-02-01] MEDS: Benzocaine-Menthol Lozenge 2/Pkg PO PRN ×4 (03:44→22:48)
[2017-02-01] MEDS: glipiZIDE 2.5 mg ER24 Tablet PO SCH (07:30)
[2017-02-01] MEDS: Pantoprazole 20 mg ER24 Tablet PO SCH (08:26)
[2017-02-01] MEDS: lamoTRIgine 100 mg Tablet PO SCH (08:27)
[2017-02-01] MEDS: Venlafaxine XR 75 mg ER24 Capsule PO SCH (08:29)
[2017-02-01] MEDS: BusPIRone 15 mg Dividose Tablet PO SCH ×2 (08:29→20:40)
--- NOTE | 2017-02-01 12:28 | PCM.PNPSY ---
Subjective Date of Service Feb 01, 2017 Subjective I spent 30 minutes both reviewing treatment plan with our clinical team, interviewing the patient and providing supportive/educational psychotherapy. I spent more than 50% of the time counseling the patient. I reviewed the treatment plan with the patient and discussed options available including the potential risks, benefits and side effects. Polly reports a marked improvement in thought organization and mood stability. Staff reports that she has been active and participating well in one-to-one unit and group activities. She slept 8 hours and denies suicidal ideation manic or psychotic symptoms review. She denies medication side effects. She was able to identify her medications and what they were used to treat. Current Medications Current Medications Acetaminophen 650 mg Q4H PRN PO Last administered on 01/31/17 00:32; Admin Dose 650 MG; Start 01/31/17 at 00:20 Aripiprazole 5 mg DAILYWM PO Last administered on 02/01/17 08:26; Admin Dose 5 MG; Start 02/01/17 at 08:00 Benzocaine/Menthol 1 lozenge Q2H PRN PO Last administered on 02/01/17 03:44; Admin Dose 1 LOZENGE; Start 01/31/17 at 00:20 Benzocaine/Menthol 1 lozenge Q2H PRN PO Last administered on 02/01/17 10:07; Admin Dose 1 LOZENGE; Start 01/31/17 at 13:15 Buspirone HCl 10 mg BID PO Last administered on 02/01/17 08:29; Admin Dose 10 MG ; Start 01/31/17 at 20:30 Glipizide 10 mg DAILYAC PO Last administered on 02/01/17 07:30; Admin Dose 10 MG ; Start 01/31/17 at 13:15 Hydroxyzine Pamoate 50 mg Q4H PRN PO Last administered on 01/31/17 21:04; Admin Dose 50 MG; Start 01/31/17 at 00:20 Lamotrigine 200 mg DAILYWM PO Last administered on 02/01/17 08:27; Admin Dose 200 MG; Start 02/01/17 at 08:00 Nicotine 1 patch ONCE ONCE TOPICAL Last administered on 01/30/17 16:29; Admin Dose 1 PATCH; Start 01/30/17 at 16:20; Stop 01/30/17 at 16:21; Status DC Pantoprazole 20 mg MORNING PO Last administered on 02/01/17 08:26; Admin Dose 20 MG; Start 02/01/17 at 08:30 Pioglitazone HCl 15 mg DAILY PO Last administered on 02/01/17 08:25; Admin Dose 15 MG; Start 02/01/17 at 08:30 Temazepam 15 mg HS PRN PO Last administered on 01/31/17 21:04; Admin Dose 15 MG ; Start 01/31/17 at 00:25 Venlafaxine HCl 300 mg DAILY PO Last administered on 02/01/17 08:29; Admin Dose 300 MG; Start 01/31/17 at 13:15 Mental Status Exam Appearance: Disheveled Attitude: Pleasant, Cooperative Behavior: No unusual behavior Affect: Well Modulated/Appropriate Mood: Euthymic Thought Process/Associations: Logical/Sequential, Goal Directed Speech Production: Normal Speech Rate: Normal Speech Articulation: Normal Thought Content: Appropriate Danger to Self/Suicidal Ideati: None Danger to Others: None Consciousness: Alert Orientation: Person, Place, Date Memory: Grossly Intact Estimate Intellectual Function: Above Average Basis for IQ estimate: Awareness current events, Word use/vocabulary, Educational history, Employment history Attention/Concentration & Cogn: Grossly Intact Cognitive Testing Method: Abstract Reasoning during interview, Proverb interpretation, Serial computations, Spelling forward & backward Insight: Good Judgement: Good Result Diagram: 01/30/17 1230 01/30/17 1230 Mental Health Plan The patient is a 51-year-old, white female, who has been struggling with symptoms of both polysubstance abuse and bipolar mood disorder, primarily depression for the past several decades. In the past, she had been relatively well controlled on a combination of Abilify, Lamictal and Effexor, but for unclear reasons has had unrelenting depression in the past month, culminating in four days of suicidal ideation. She reports feeling markedly improved today. She stated that she had been not sleeping As a result of a manic episode and was getting more more agitated and suicidal. Today after a night's sleep she reports improved thought organization and mood stability. She problem solved around a treatment plan and safety planned. She hopes for discharge in the a.m. [place] I. 1. Bipolar mood disorder, depression with suicidal ideation. 2. Posttraumatic stress disorder. [place] II. Defer. [place] III. Rle-inmebqz-fyzlyigbp diabetes, gastroesophageal reflux disease. [place] IV. Unknown. [place] V. Current Global Assessment of Functioning equal to 40. Medications Treatments Patient is being provided with a high degree of safety through our unit structure and active adult engagement provided by our mental health professionals, mental health technicians, psychiatric nurses and myself. We are focusing on developing improved coping skills and identifying stressors that may have led to current episode. We will attempt to: * Integrate into therapeutic groups, milieu and individual therapy. * Maintain in a closely monitored and structured unit * Provide low-stimulation environment * Obtain collateral data to assist in treatment planning * Assess degree of lability of affect and impulse control * Complete safety plan * Decrease frequency of relapse and need for re-hospitalization * Denies thoughts of harm to self and/or others * Establish a consistent sleep pattern * Medication effective in stabilization of mood and/or thought process * Reduce the risk of imminent harm to self and/or others by providing a safe environment * Tolerates medication without side effects Patient will be on the following psychiatric medications: Effexor ER 300 daily Lamictal 200 mg daily BuSpar 10 mg twice a day Abilify 5 mg every morning Restoril 15 mg at bedtime when necessary Glipizide 10 mg daily Protonix 20 mg daily Actos 15 mg daily Education: Educate patient about recreational drug use as an etiology Educate about metabolic etiologies related to obesity Patient's legal status Voluntary Anticipated number of hospital days to achieve above goals: 3 Disposition: Home David Morgan MD Feb 01, 2017 12:28
[2017-02-01 16:21] VITALS: BP 111/74; PULSE 89; RESP 15
[2017-02-02] MEDS: Benzocaine-Menthol Lozenge 2/Pkg PO PRN ×2 (03:41→12:34)
[2017-02-02] MEDS: Pantoprazole 20 mg ER24 Tablet PO SCH (07:48)
[2017-02-02] MEDS: Venlafaxine XR 75 mg ER24 Capsule PO SCH (07:50)
[2017-02-02] MEDS: BusPIRone 15 mg Dividose Tablet PO SCH (07:50)
[2017-02-02] MEDS: lamoTRIgine 100 mg Tablet PO SCH (07:51)
[2017-02-02] MEDS: glipiZIDE 2.5 mg ER24 Tablet PO SCH (07:51)
[2017-02-02] MEDS ORDERED: BUSP15TA3 PO (10:18)
[2017-02-02] MEDS ORDERED: LAMO100T PO (10:18)
[2017-02-02] MEDS ORDERED: VENL75CA PO (10:18)
[2017-02-02] MEDS ORDERED: ARIP5TAB5 PO (10:18)
--- NOTE | 2017-02-02 10:21 | PCM.DIMED ---
Discharge Instructions Date of Service Feb 02, 2017 Dates of Hospitalization Jan 31, 2017 at 00:07 Discharge Diagnosis Discharge Diagnosis [place] I 1. Bipolar mood disorder, depression with suicidal ideation. 2. Posttraumatic stress disorder. [place] II. Defer. [place] III. Bix-vytcebc-lhfgcbgpj diabetes, gastroesophageal reflux disease. [place] IV. Unknown. [place] V. Current Global Assessment of Functioning equal to 45. Medication Instructions Additional med instructions I Strongly encouraged patient to follow up with outpatient care: 1-Recommended patient takes medication as prescribed and not alter this unless under the direct care of a provider. 2-Recommend client refrain from recreational drugs and alcohol while taking psychiatric medications. 3--Recommend patient attempt to find a therapist or group to deal with impulse control and interpersonal relationship conflicts Diet Discharge Diet: No restrictions Activity Discharge Activity: No restrictions Call your provider Call your provider for: Fever or Chills Patient Instructions Patient Instructions Follow-up with Gurmeet Pitts 02/03/2017 1:[address] Marinelli Follow-up with PCP in: 2 weeks David Morgan MD Feb 02, 2017 10:20
--- NOTE | 2017-02-02 11:15 | DIS ---
[address] [address] DISCHARGE SUMMARY PATIENT: POLLY BUSH : 1965 MR#: [id number] ADMIT: 01/31/2017 JOB ID: [id number] DIS: DATE OF ADMISSION: 01/31/2017 DATE OF DISCHARGE: 02/02/2017 IDENTIFICATION: Polly is a 51-year-old white female that has been suffering from a combination of bipolar mood disorder and PTSD with polysubstance abuse. She is in early remission. Currently lives alone in [place]. REASON FOR ADMISSION: Client self-presented to the emergency department with suicidal ideation and was unable to develop a safety plan. SUMMARY OF PRESENT ILLNESS: Patient is a 51-year-old, white female, who has been struggling with symptoms of both bipolar mood disorder and polysubstance abuse, primarily depression for the past several decades. In the past she had been relatively well contained on a combination of Abilify, Lamictal, and Effexor, but for unclear reasons had a period of insomnia and depression over the past month that culminated in severe suicidal ideations for the past four days. She was admitted for stabilization and care. HOSPITAL COURSE: Client was admitted to our unit and was provided with a high degree of safety through the structure and active adult engagement that she received here. We had her participate in one-to-one and unit and group activities focused on improving coping skills, as well as coming up with a safety plan should suicidal ideation return as an outpatient. She participated actively well in all the above activities. She was continued on her current doses of medications and on a daily basis showed approximately 25% to 30% improvement. Today she is feeling strong and is requesting discharge. She detailed a reasonable followup plan and safety plan for me. We both agreed on a discharge for this afternoon, and she will follow up with her primary care physician, Dr. Marinelli, on February 03, 2017 at 1:30 p.m. MENTAL STATUS EXAM: Client neatly dressed, calm, pleasant. Mood euthymic. Affect congruent. Normal intensity. Thought process logical, goal oriented, and spontaneous. Thought content: Themes of future planning on how she is going to take care of herself and things she is going to enjoy. She denied suicidal ideation, plan, or intent and detailed a reasonable safety plan. Client alert and oriented to person, place, and date. Judgment and insight appropriate. Impulse control highly contained. Reality testing intact. Competence to handle current stressors appears at baseline. DISCHARGE DIAGNOSIS: [place] I:1. Bipolar mood disorder. 2. Depression with suicidal ideation. [place] II:Posttraumatic stress disorder. [place] III:1. Non-insulin dependent diabetes. 2. Gastroesophageal reflux disease. [place] IV:Unknown. [place] V:Current GAF equal to 45. DISCHARGE MEDICATIONS: 1. Effexor ER 300 daily. 2. Lamictal 200 daily. 3. BuSpar 10 daily. 4. Abilify 5 q.a.m. 5. Restoril 15 at bedtime. 6. Glipizide 10 daily. 7. Protonix 20 daily. ACTIVITY AND DIET: Recommend client refrain from recreational drugs and alcohol while taking psychiatric medications. Recommend she not change medications unless under the supervision of a physician. DISCHARGE APPOINTMENT: Dr. Marinelli February 03, 2017 at 1:30 p.m. [facility] in [place]. CONDITION ON DISCHARGE: Good. PROGNOSIS: Good.
== END 2017-02-02 12:44 | disposition home or self-care (01) | DRG 885 ==
LOC: SED 08:49 → MHC 01-31 00:07
PROVIDERS: ADMIT Psychiatry & Neurology Psychiatry; ATTEND Psychiatry & Neurology Psychiatry
DX: F31.9 Bipolar disorder, unspecified (principal); R45.851 Suicidal ideations; F43.10 Post-traumatic stress disorder, unspecified; E11.9 Type 2 diabetes mellitus without complications; K21.9 Gastro-esophageal reflux disease without esophagitis; F17.210 Nicotine dependence, cigarettes, uncomplicated

== ENCOUNTER 2017-02-03 06:39 | Emergency (ER) | payer MEDICARE, MEDICAID ==
[~2017-02-03] VITALS: Ht 149.9 cm; Wt 100.0 kg
[~2017-02-03 06:39] MED LIST changes: -AMOX-366 PO; -ARIP5TAB20 PO; +ARIP5TAB5 PO; -BENZ200C44 PO; +BUSP15TA3 PO; -CARB1TAB14 PO; -D-ME118S8 PO; -DIAZ5TAB3 PO; +GLIP10TA10 PO; +LAMO100T PO; -LAMO200T PO; +PIOG15TA21 PO; -PIOG45TA PO; -SULF1TAB7 PO; -VENL150T3 PO; -[UNRECOGNIZED DRUG - CODE] PO
[2017-02-03 06:50] VITALS: BP 122/77; PULSE 76; RESP 16; O2SAT 95
--- NOTE | 2017-02-03 07:49 | ED.REPORT ---
HPI-Psychiatric Illness Date of Service Feb 03, 2017 ED Provider: Franklin Adame MD Pt is a 51 year old female with a history of PTSD, DM, COPD, bipolar disorder, and anxiety who presents to the ED complaining of an itchy scalp onset this morning when she woke up. She c/o insomnia, stating that she did not sleep last night. She denies suicidal ideation. She reports that she thinks that she might have lice because her scalp feels similar to when she has had lice previously. The pt reports that she drank a small bottle of NyQuil last night at 20:00 because her "friend is dying and trying to get drunk." Pt was admitted on 01/31/17 to [facility] for PTSD with poly substance abuse and bipolar mood disorder, and she was discharged on 02/02/17. Nursing Notes Stated Complaint: POSSIBLE LICE Chief Complaint: General Complaint Nursing Notes Reviewed: Yes ([employer], [employer] not reconciled) Allergies: Coded Allergies: codeine (Verified Adverse Reaction, Severe, Nausea,Vomiting, 09/25/16) Scheduled Aripiprazole (Abilify) 5 Mg Tablet 5 MG PO DAILYWM Buspirone (Buspirone) 15 Mg Tablet 10 MG PO BID Glipizide (Glipizide) 10 Mg Tablet 10 MG PO DAILY Lamotrigine (Lamictal) 100 Mg Tablet 200 MG PO DAILYWM Omeprazole (Omeprazole) 20 Mg Capsule.dr 20 MG PO MORNING Pioglitazone (Pioglitazone) 15 Mg Tablet 15 MG PO DAILY Venlafaxine ER (Effexor XR) 75 Mg Capsule 300 MG PO DAILY General Time Seen by MD: 07:37 Chief Complaint Other (paranoid of lice) Hx Obtained From: Patient Arrived By: Walk-in Onset Occurred: 1 - 4 hours ago Symptom Duration: Since onset Severity: Current: No pain currently Severity: Maximum: No pain Recent Healthcare: Recent doctor visit, Recent hospitalization Similar Sx Previous: Yes Risk-Psychiatric Illness Suicide Risk Stratification Suicide Risk Factors - Adult: : Prior psych admission: Substance abuse RF Statements: Risk factors reviewed Past Medical History Past Medical History Notes: PCP: Dr. Harris Discharged [facility] from [facility] admission: Bipolar, depression w/SI, and PTSD Past Medical History Bipolar, approximately 6-7 admissions (Last Admit 01/2017) PTSD anxiety h/o Diverticulitis h/o PCOS restless leg syndrome. Allergy to Codeine. Reports: COPD, Diabetes mellitus (poorly controlled), GERD Reports: Depression Past Surgical History Cervical spine surgery Reports: Cholecystectomy Family History Noncontributory Smoking History Current Every Day Smoker Social History Denies THC use. 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, In recovery Other Social History: Frequent ED visitor, Lives alone, Local resident Ambulatory Status Independent Review of Systems Skin: Reports Itching (on head) Psychiatric: Reports: Insomnia, Denies: Suicidal ideation Complete sys rev & neg: except as marked. Physical Exam Initial Vital Signs Vital Signs (First) Date Time Temp Pulse Resp B/P Pulse Ox O2 Delivery O2 Flow Rate FiO2 02/03/17 06:50 36.5 76 16 122/77 95 Room Air Initial VS: Reviewed, Vital signs normal Neck: Supple, Full range of motion Respiratory: Breath sounds normal, Clear to auscultation, No respiratory distress Cardiovascular: Regular rate & rhythm, Heart sounds normal, Intact distal pulses Abdomen / GI: Soft, Non-tender Extremities: Vascular intact, Neuro intact Skin: Warm, Dry, No cyanosis General/Constitutional: Awake, Alert No distress and sitting in chair. Not clinically intoxicated and speech is clear. Neurologic: CN II - XII intact PSYCHIATRIC: Denies suicidal ideation and homical ideation. Admits drinking Nyquil was for intoxication and not for self-harm. Limited insight and judgement was poor. Head / Eyes: Atraumatic, Normocephalic No lice evident on exam; no nits. Seborrheic dermatitis present. Pupils are normal. Interpretation & Diagnostics Lab Results Interpretation Test 02/03/17 08:30 Acetaminophen Level 15.4ug/mL Rx (10-25) Lab Results Interpretation: Tylenol level 15 Re-Eval/Medical Decision Med Decision/Clinical Course This is a 51-year-old female who presents with a chief concern that she wants to be checked for lice that she scratched her scalp and was just worried that that was a possibility. She was just released from the hospital after psychiatric hospitalization admitted last night she drank half of a bottle of NyQuil in order to become intoxicated, as well as order to help her sleep. Her discharge instructions listlessly paid Restoril as had been prescribed for her, and she indicated she was not aware of this but has not picked up Her prescription from [facility] yet. She reports she is not suicidal, she has no additional complaints and she just wanted it checked out. She states she feels safe. She has number of years of sobriety before this event. She denies any other coingestions, and intent of self-harm. Exam she is slightly anxious. She does not have any pediculosis on exam, but has mild seborrheic dermatitis. Tylenol level is normal. She was counseled on not drinking to intoxication, not overdosing on NyQuil, and is informed that she reportedly has a prescription for sleep aid to help her at [facility] according to the discharge instructions. She is discharged in improved condition. Source of Hx: Old records Re-Evaluation/Progress : Time of Eval: 07:40 Re-Evaluation/Progress Note: Informed pt of plan for discharge. Pt understands and agrees with plan for discharge. F/U instructions and RTER warnings given. All questions addressed. Differential Diagnosis: Positive: Substance abuse, Negative: Alcohol abuse, Suicidal Counseled Regarding: Diagnosis, Lab results, Need for follow-up, When/why to return to ED Discharge & Departure Impression: Primary Impression: Overdose Encounter type: initial encounter Injury intent: accidental or unintentional Qualified Code: T50.901A - Poisoning by unspecified drugs, medicaments and biological substances, accidental (unintentional), initial encounter Additional Impressions: Seborrheic dermatitis of scalp Substance abuse Disposition: Home Discharge Condition All VS Reviewed: Yes Condition: Stable Additional Instructions: 1. You do not have lice on your exam. You do have some dandruff and can use selson blue or equivalent shampoo to treat. 2. Do not drink nyquil for intoxication, and if using such medications - take only as recommended. 3. I have drawn a Tylenol level as there is Tylenol in Nyquil. We will call you with results as you have indicated he do not want to wait in the emergency department. If severely elevated, there is a chance she may need to be in the hospital and receive the treatment. 4. Your discharge instructions from yesterday indicate that you were prescribed Restoril to help sleep at night. Call [facility] when they open to verify this. (You can call us at [phone] if your initial prescription did not go through) 5. Continue to work on sobriety. 6. Return to the department if you have new or worsening symptoms Referrals: Tommy Harris MD (PCP) [facility] Att[facility] Portions of this note were transcribed by Mona Kingsley. I, Dr. Adame personally performed the history, physical exam and medical decision-making; I reviewed and confirmed the accuracy of the information in the transcribed note. Signed by: David Lara, 02/03/17. copies to: Tommy Harris MD, Matthew F MD Feb 03, 2017 07:49 Mona Arrieta Feb 03, 2017 08:15
[2017-02-03 08:55] VITALS: BP 143/91; PULSE 69; RESP 15; O2SAT 94
[2017-02-03 09:14] VITALS: BP 143/91; PULSE 69; RESP 15; O2SAT 94
== END 2017-02-03 09:15 | disposition home or self-care (01) ==
LOC: SED 06:39
DX: T50.901A Poisoning by unspecified drugs, medicaments and biological substances, accidental (unintentional), initial encounter (principal); L21.9 Seborrheic dermatitis, unspecified; F19.10 Other psychoactive substance abuse, uncomplicated; X58.XXXA Exposure to other specified factors, initial encounter; Y93.9 Activity, unspecified; Y92.009 Unspecified place in unspecified non-institutional (private) residence as the place of occurrence of the external cause; Y99.8 Other external cause status; E11.9 Type 2 diabetes mellitus without complications; K21.9 Gastro-esophageal reflux disease without esophagitis; F43.10 Post-traumatic stress disorder, unspecified; F17.200 Nicotine dependence, unspecified, uncomplicated; Z88.5 Allergy status to narcotic agent
CPT/HCPCS: 36415; 99283; G0480

== ENCOUNTER 2017-02-05 16:06 | Emergency (ER) | payer MEDICARE, MEDICAID ==
[~2017-02-05] VITALS: Ht 149.9 cm; Wt 86.4 kg
[2017-02-05 16:28] VITALS: BP 142/86; PULSE 101; RESP 18; O2SAT 92
--- NOTE | 2017-02-05 17:16 | ED.REPORT ---
HPI-Rash / Abscess Date of Service Feb 05, 2017 ED Provider: Tommy Sharma MD Nursing Notes Stated Complaint: MULTIPLE INSECT BITES Chief Complaint: Skin Rash/Abscess Allergies: Coded Allergies: codeine (Verified Adverse Reaction, Severe, Nausea,Vomiting, 09/25/16) Scheduled Aripiprazole (Abilify) 5 Mg Tablet 5 MG PO DAILYWM Buspirone (Buspirone) 15 Mg Tablet 10 MG PO BID Glipizide (Glipizide) 10 Mg Tablet 10 MG PO DAILY Lamotrigine (Lamictal) 100 Mg Tablet 200 MG PO DAILYWM Omeprazole (Omeprazole) 20 Mg Capsule.dr 20 MG PO MORNING Pioglitazone (Pioglitazone) 15 Mg Tablet 15 MG PO DAILY Venlafaxine ER (Effexor XR) 75 Mg Capsule 300 MG PO DAILY General Time Seen by MD: 17:14 Past Medical History Past Medical History Notes: PCP: Dr. Harris [facility] admission: Bipolar, depression w/SI, and PTSD Past Medical History Bipolar, approximately 6-7 admissions (Last Admit 01/2017) PTSD anxiety h/o Diverticulitis h/o PCOS restless leg syndrome. Allergy to Codeine. Reports: COPD, Diabetes mellitus, GERD Reports: Depression Past Surgical History Cervical spine surgery Reports: Cholecystectomy Family History Noncontributory Smoking History Current Every Day Smoker Social History Denies THC use. 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
--- NOTE | 2017-02-05 18:08 | PCM.EDPN ---
ED Note Date of Service Feb 05, 2017 ED Attending Statement Patient was here for one hour left prior to being roomed. Tommy Sharma MD Feb 05, 2017 18:08
== END 2017-02-05 17:23 | disposition left against medical advice (07) ==
LOC: SED 16:06
DX: T07 Unspecified multiple injuries (principal); W57.XXXA Bitten or stung by nonvenomous insect and other nonvenomous arthropods, initial encounter; Y92.9 Unspecified place or not applicable; Y93.9 Activity, unspecified; Y99.8 Other external cause status; Z53.29 Procedure and treatment not carried out because of patient's decision for other reasons